=== PATIENT | male | born 1980 | race African-American/Black ===

== ENCOUNTER 2017-08-01 12:08 | Emergency (ER) | payer SELFPAY ==
[2017-08-01] MEDS ORDERED: NA CHLORIDE 0.9% 1,000 ML ONE (12:32)
[2017-08-01 12:56] LABS: Bicarbonate 23 mEq/L (21-31); Glucose Level 101 mg/dL (65-120); Potassium 3.6 mEq/L (3.6-5.0); Sodium Level 139 mEq/L (135-145)
[2017-08-01 12:59] LABS: BUN Blood Urea Nitrogen 11 mg/dL (6-20); Creatine Phosphokinase 286 IU/L (22-269)
--- NOTE | 2017-08-01 13:06 | EDPHYS ---
Physician Documentation [facility] Name: Ulises Patel Age: 37 yrs Sex: Male : 1980 Arrival Date: 08/01/2017 Time: 12:10 Bed 16 Private MD: ED Physician Pablo Moe HPI: 08/01 12:44 This 37 yrs old Black Male presents to ER via EMS with complaints of Nausea/Vomiting. snw 12:44 The patient presents to the emergency department with nausea, that is moderate, snw vomiting. Onset: The symptoms/episode began/occurred suddenly. Possible causes: pt feels he became overheated. Associated signs and symptoms: Pertinent positives: vomiting, chest pain. Severity of symptoms: At their worst the symptoms were moderate. The patient has not experienced similar symptoms in the past. It is unknown whether or not the patient has recently seen a physician. does not take medications for HTN. Historical: - Allergies: 12:15 Iodine; ae1 - Home Meds: 12:15 albuterol sulfate Inhl [Active]; ae1 - PMHx: 12:15 Hypertension; spine fracture; Asthma; CVA; ae1 - Immunization history:: Last tetanus immunization: unknown, Flu vaccine is not up to date. - Social history:: Smoking status: Patient/guardian denies using tobacco. - Ebola Screening: : Patient denies exposure to infectious person Patient denies travel to an Ebola-affected area in the 21 days before illness onset. ROS: 12:43 Eyes: Negative for injury, pain, redness, and discharge, ENT: Negative for injury, snw pain, and discharge, Neck: Negative for injury, pain, and swelling, Cardiovascular: Negative for chest pain, palpitations, and edema, Respiratory: Negative for shortness of breath, cough, wheezing, and pleuritic chest pain. 12:43 Back: Negative for injury and pain, : Negative for injury, bleeding, discharge, and swelling, MS/Extremity: Negative for injury and deformity, Skin: Negative for injury, rash, and discoloration, Neuro: Negative for headache, weakness, numbness, tingling, and seizure. 12:43 Constitutional: Positive for chills, fatigue, malaise, poor PO intake. 12:43 Abdomen/GI: Positive for nausea and vomiting. Exam: 12:43 Constitutional: This is a well developed, well nourished patient who is awake, alert, snw and in no acute distress. Head/Face: Normocephalic, atraumatic. Eyes: Pupils equal round and reactive to light, extra-ocular motions intact. Lids and lashes normal. Conjunctiva and sclera are non-icteric and not injected. Cornea within normal limits. Periorbital areas with no swelling, redness, or edema. ENT: Nares patent. No nasal discharge, no septal abnormalities noted. Tympanic membranes are normal and external auditory canals are clear. Oropharynx with no redness, swelling, or masses, exudates, or evidence of obstruction, uvula midline. Mucous membranes moist. Neck: Trachea midline, no thyromegaly or masses palpated, and no cervical lymphadenopathy. Supple, full range of motion without nuchal rigidity, or vertebral point tenderness. No Meningismus. Chest/axilla: Normal chest wall appearance and motion. Nontender with no deformity. No lesions are appreciated. Cardiovascular: Regular rate and rhythm with a normal S1 and S2. No gallops, murmurs, or rubs. Normal PMI, no JVD. No pulse deficits. Respiratory: Lungs have equal breath sounds bilaterally, clear to auscultation and percussion. No rales, rhonchi or wheezes noted. No increased work of breathing, no retractions or nasal flaring. Abdomen/GI: Soft, non-tender, with normal bowel sounds. No distension or tympany. No guarding or rebound. No evidence of tenderness throughout. Back: No spinal tenderness. No costovertebral tenderness. Full range of motion. Skin: Warm, dry with normal turgor. Normal color with no rashes, no lesions, and no evidence of cellulitis. MS/ Extremity: Pulses equal, no cyanosis. Neurovascular intact. Full, normal range of motion. Neuro: Awake and alert, GCS 15, oriented to person, place, time, and situation. Cranial nerves II-XII grossly intact. Motor strength 5/5 in all extremities. Sensory grossly intact. Cerebellar exam normal. Normal gait. Psych: Awake, alert, with orientation to person, place and time. Behavior, mood, and affect are within normal limits. Vital Signs: 12:16 BP 113 / 65; Pulse 65; Resp 19; Temp 98.3(O); Pulse Ox 96% ; Weight 88.45 kg (R); ae1 12:40 BP 117 / 70 Supine; Pulse 70; Resp 18; Pulse Ox 98% on R/A; ae1 12:42 BP 125 / 92 Sitting; Pulse 60; Resp 18; Pulse Ox 99% on R/A; ae1 12:44 BP 124 / 91 Standing; Pulse 68; Resp 19; Pulse Ox 99% on R/A; ae1 13:37 BP 116 / 75; Pulse 75; Resp 16; Temp 98.3; Pulse Ox 100% on R/A; dm5 MDM: 12:11 Patient medically screened. snw 13:06 Data reviewed: vital signs, nurses notes. Data interpreted: Pulse oximetry: on room air snw is 99 %. Interpretation: normal. Counseling: I had a detailed discussion with the patient and/or guardian regarding: the historical points, exam findings, and any diagnostic results supporting the discharge/admit diagnosis, the presence of at least one elevated blood pressure reading (>120/80) during this emergency department visit, lab results, radiology results, the need for outpatient follow up, to return to the emergency department if symptoms worsen or persist or if there are any questions or concerns that arise at home. Special discussion: I have referred the patient to see his PCP for further evaluation of high blood pressure. Based on the history and exam findings, there is no indication for further emergent testing or inpatient evaluation. I discussed with the patient/guardian the need to see the primary care provider for further evaluation of the symptoms. 08/01 12:25 Order name: Chem 7; Complete Time: 13:04 snw 08/01 12:25 Order name: Troponin (emerg Dept Use Only); Complete Time: 13:06 snw 08/01 12:25 Order name: CPK; Complete Time: 13:04 snw 08/01 13:21 Order name: EKG Electrocardiogram; Complete Time: 13:36 EDMS 08/01 12:19 Order name: Orthostatics; Complete Time: 12:49 snw Administered Medications: Discontinued: NS 0.9% 1000 ml IV at 1 bolus Per protocol; 1000 mL bolus 12:39 Drug: NS 0.9% 1000 ml Route: IV; Rate: 1 bolus; Site: right antecubital; ae1 13:39 Follow up: IV Intake: 800ml dm5 Disposition: 15:11 Co-signature as Attending Physician, Pablo Moe MD I agree with the assessment and pat plan of care. Disposition: 08/01/17 13:05 Discharged to Home. Impression: Heat fatigue, transient, Vomiting, unspecified. - Condition is Stable. - Discharge Instructions: Fatigue, Nausea and Vomiting, [id number], Heat-Related Illness, Rehydration, Adult. - Prescriptions for Zofran 4 mg Oral Tablet - take 1 tablet by ORAL route every 12 hours As needed; 20 tablet. - Medication Reconciliation Form, Thank You Letter, Antibiotic Education, Prescription Opioid Use form. - Follow up: Private Physician; When: 2 - 3 days; Reason: Recheck today's complaints, Continuance of care, Re-evaluation by your physician. Follow up: Emergency Department; When: As needed; Reason: Worsening of condition. Signatures: Dispatcher [employer] Pham [place], RN RN dm5 Pablo Moe MD MD cha Therrien, Shelly, ELDER COUNSELOR-C ELDER COUNSELOR-Csnw Ilir Wyatt RN RN ae1 Corrections: (The following items were deleted from the chart) 13:36 12:19 Urine Dipstick-Ancillary ordered. snw dm5 13:41 13:05 08/01/2017 13:05 Discharged to Home. Impression: Heat fatigue, transient; dm5 Vomiting, unspecified. Condition is Stable. Forms are Medication Reconciliation Form, Thank You Letter, Antibiotic Education, Prescription Opioid Use. Follow up: Private Physician; When: 2 - 3 days; Reason: Recheck today's complaints, Continuance of care, Re-evaluation by your physician. Follow up: Emergency Department; When: As needed; Reason: Worsening of condition. snw
--- NOTE | 2017-08-01 13:06 | ER ---
Nurse's Notes [facility] Name: Ulises Patel Age: 37 yrs Sex: Male : 1980 Arrival Date: 08/01/2017 Time: 12:10 Bed 16 Private MD: Diagnosis: Heat fatigue, transient;Vomiting, unspecified Presentation: 08/01 12:10 Presenting complaint: EMS states: States patient reports nausea and vomiting for the ae1 past couple of days. Patient reports he was working outside over the weekend in the sun and is concerned he may be dehydrated. Transition of care: patient was not received from another setting of care. Onset of symptoms was July 31, 2017. Risk Assessment: Do you want to hurt yourself or someone else? Patient reports no desire to harm self or others. Care prior to arrival: IV initiated. 20 GA, in the right antecubital area, Glucose check: 108. 12:10 Method Of Arrival: EMS: [facility] ae1 12:10 Acuity: SERGIO 3 ae1 Triage Assessment: 12:28 General: Appears in no apparent distress. comfortable, well groomed, Behavior is calm, ae1 cooperative. GI: Abdomen is flat, non-distended, Reports nausea, vomiting. Historical: - Allergies: 12:15 Iodine; ae1 - Home Meds: 12:15 albuterol sulfate Inhl [Active]; ae1 - PMHx: 12:15 Hypertension; spine fracture; Asthma; CVA; ae1 - Immunization history:: Last tetanus immunization: unknown, Flu vaccine is not up to date. - Social history:: Smoking status: Patient/guardian denies using tobacco. - Ebola Screening: : Patient denies exposure to infectious person Patient denies travel to an Ebola-affected area in the 21 days before illness onset. Screenin:28 Abuse screen: Denies threats or abuse. Nutritional screening: No deficits noted. ae1 Tuberculosis screening: No symptoms or risk factors identified. Fall Risk None identified. Assessment: 12:29 Reassessment: 4 mg IVP Zofran administered by EMS. ae1 13:37 Pain: Denies pain. GI: Reports reduced nausea. Derm: Skin is pink, warm \T\ dry. dm5 13:40 GI: Abdomen is flat, Bowel sounds present X 4 quads. dm5 Vital Signs: 12:16 BP 113 / 65; Pulse 65; Resp 19; Temp 98.3(O); Pulse Ox 96% ; Weight 88.45 kg (R); ae1 12:40 BP 117 / 70 Supine; Pulse 70; Resp 18; Pulse Ox 98% on R/A; ae1 12:42 BP 125 / 92 Sitting; Pulse 60; Resp 18; Pulse Ox 99% on R/A; ae1 12:44 BP 124 / 91 Standing; Pulse 68; Resp 19; Pulse Ox 99% on R/A; ae1 13:37 BP 116 / 75; Pulse 75; Resp 16; Temp 98.3; Pulse Ox 100% on R/A; dm5 ED Course: 12:10 Patient arrived in ED. ae1 12:11 Molly Gordon F[facility]-C [facility]. snw 12:11 Pablo Moe MD is Attending Physician. snw 12:14 Triage completed. ae1 12:18 Arm band placed on left wrist. ae1 12:18 Bed in low position. Call light in reach. Side rails up X2. inspectors and regulatory officers accompanying ae1 patient . 12:18 Maintain EMS IV. Dressing intact. Site clean \T\ dry. Gauge \T\ site: 20 gauge to the right ae 1 AC. 12:27 EKG done, by technical planner. reviewed by Molly HASTINGS. at1 13:35 Pham Bailon, RN is Primary Nurse. dm5 13:40 No provider procedures requiring assistance completed. IV discontinued, intact, dm5 bleeding controlled, No redness/swelling at site. Pressure dressing applied. Administered Medications: Discontinued: NS 0.9% 1000 ml IV at 1 bolus Per protocol; 1000 mL bolus 12:39 Drug: NS 0.9% 1000 ml Route: IV; Rate: 1 bolus; Site: right antecubital; ae1 13:39 Follow up: IV Intake: 800ml dm5 Intake: 13:39 IV: 800ml; Total: 800ml. dm5 Outcome: 13:05 Discharge ordered by . snw 13:41 Patient left the ED. dm5 Signatures: Pham Bailon, RN RN dm5 Molly Gordon FNP-C STUDENT CAREER DEVELOPMENT SPECIALIST-Csnw Sandra arteaga, manager paid EKG Tat1 Ilir Wyatt RN RN ae1
[2017-08-01 13:45] VITALS: TEMP 98.3
[2017-08-01 13:49] VITALS: BP 116/75; O2SAT 100
--- NOTE | 2017-08-01 14:24 | EKG ---
Test Date: 2017-08-01 Test Time: 12:15:12 Video And Sound Recorder: ANSON MEASUREMENT RESULTS: Intervals: Rate: 63 ID: [id number] QRSD: 98 QT: 388 QTc: 397 [place]: P: 55 ID: [id number] QRS: 31 T: 30 INTERPRETIVE STATEMENTS: Normal sinus rhythm with sinus arrhythmia Normal ECG No previous ECG available for comparison Electronically Signed On 08-01-17 14:24:10 CDT by Carrillo Orona
== END 2017-08-01 13:41 | disposition home or self-care (01) ==
LOC: ER 12:08
DX: T67.6XXA Heat fatigue, transient, initial encounter (principal); I10 Essential (primary) hypertension; J45.909 Unspecified asthma, uncomplicated; X58.XXXA Exposure to other specified factors, initial encounter; Y93.9 Activity, unspecified; Y92.9 Unspecified place or not applicable; Y99.9 Unspecified external cause status
CPT/HCPCS: 36415; 80048; 82550; 84484; 93005; 99284; J7030

== ENCOUNTER 2018-03-05 21:25 | Emergency (ER) | payer SELFPAY ==
[2018-03-05 21:52] LABS: Absolute Lymphocytes (CBC) 1.6 K/uL (0.7-4.9); Absolute Monocytes 1.1 K/uL (0.1-1.3); Absolute Neutrophil 24.6 K/uL (1.8-8.0); Basophils % 0.2 % (0-1.3); Eosinophils % 1.3 % (0-4.4); Hematocrit 43.9 % (39.6-49.0); MPV 7.3 fL (7.6-11.3); Monocytes % 3.9 % (3.3-12.3); RBC Red Blood Cell Count 4.95 M/uL (4.33-5.43)
[2018-03-05 21:56] LABS: Protime INR 1.08
--- NOTE | 2018-03-05 21:59 | RAD REPORT ---
EXAM DESCRIPTION: CT - Ct Stroke Brain Wo Cont - 03/05/2018 9:48 pm CLINICAL HISTORY: LEFT SIDED WEAKNESS CVA symptomology COMPARISON: No comparisons TECHNIQUE: All CT scans are performed using dose optimization technique as appropriate and may inclu de automated exposure control or mA/KV adjustment according to patient size. FINDINGS: No intracranial hemorrhage, hydrocephalus or extra-axial fluid collection.No areas of brai n edema or evidence of midline shift. The paranasal sinuses and mastoids are clear. The calvarium is intact. IMPRESSION: No acute intracranial abnormality. The findings were discussed with Dr. Pickard on 03/05/2018 at 9:40 p.m. by telephone.
--- NOTE | 2018-03-05 22:11 | ER ---
Nurse's Notes [facility] Name: Ulises Patel Age: 38 yrs Sex: Male : 1980 Arrival Date: 03/05/2018 Time: 21:29 Bed 14 Private MD: Diagnosis: Ischemic stroke Presentation: 03/05 21:37 Presenting complaint: EMS states: they were toned out for report of pt being found on bb the ground at home at 2050 pt has hx of stroke in 2011. Transition of care: patient was not received from another setting of care. Onset of symptoms was March 05, 2018 at 20:50. Risk Assessment: Do you want to hurt yourself or someone else? Patient reports no desire to harm self or others. Initial Sepsis Screen: Does the patient meet any 2 criteria? No. Patient's initial sepsis screen is negative. Does the patient have a suspected source of infection? No. Patient's initial sepsis screen is negative. Care prior to arrival: None. 21:37 Method Of Arrival: EMS: [facility] bb 21:37 Acuity: SERGIO 2 bb Triage Assessment: 21:29 General: Appears in no apparent distress. uncomfortable, Behavior is cooperative, cc3 appropriate for age. Pain: Complains of pain in chest. EENT: No signs and/or symptoms were reported regarding the EENT system. Neuro: Level of Consciousness is awake, alert, obeys commands, Oriented to person, place, time, situation, Appropriate for age Stave [place] Hand are weak on left Speech is normal, Facial symmetry appears normal, Pupils are PERRLA, Numbness in left arm and leg Reports tongue numbness. Cardiovascular: Reports chest pain, since 2-3 days. Respiratory: Airway is patent Trachea midline Respiratory effort is even, unlabored, Respiratory pattern is regular, symmetrical. GI: Abdomen is round non-distended. : No signs and/or symptoms were reported regarding the genitourinary system. Derm: No signs and/or symptoms reported regarding the dermatologic system. Musculoskeletal: Range of motion: limited in left side. Historical: - Allergies: 21:39 Iodine; bb - Home Meds: 21:39 albuterol sulfate Inhl [Active]; bb - PMHx: 21:39 Asthma; CVA; Hypertension; spine fracture; bb - Immunization history:: Adult Immunizations unknown. - Ebola Screening: : No symptoms or risks identified at this time. - Social history:: Smoking status: Patient/guardian denies using tobacco, but has a distant history of tobacco abuse. Screenin:29 patient can't remember last meal taken The patient is alert, able to follow commands. cc3 The patient does not exhibit slurred or garbled speech The patient is not exhibiting difficulty speaking. The patient does not exhibit difficulty understanding words. The patient is able to swallow own secretions with no drooling or need for suction. Patient tolerated one teaspoon of water. No drooling, immediate coughing, gurgling, or clearing of the throat was noted. The patient tolerated 90mL of water. No drooling, immediate coughing, gurgling, or clearing of the throat was noted. The patient passed the bedside swallow screening. Oral medications may be given as ordered. Contact Physician for further diet orders. Provider notified of bedside swallow screening results: Elia Pickard MD. 21:49 Abuse screen: Denies threats or abuse. Nutritional screening: No deficits noted. bb Tuberculosis screening: No symptoms or risk factors identified. Fall Risk None identified. Assessment: 21:29 Reassessment: Dr Pickard at bedside for pt evaluation. bb 21:35 Reassessment: pt to CT scan via stretcher with RN. bb 22:30 Reassessment: Patient appears in no apparent distress at this time. Patient and/or cc3 family updated on plan of care and expected duration. Pain level reassessed. Patient is alert, oriented x 3, equal unlabored respirations, skin warm/dry/pink. 23:18 Reassessment: Patient appears in no apparent distress at this time. Patient and/or cc3 family updated on plan of care and expected duration. Pain level reassessed. Patient is alert, oriented x 3, equal unlabored respirations, skin warm/dry/pink. 23:35 Reassessment: Patient for transfer to [facility], report called to RN alfonzo Clark. Transfer form completed signed by the patient himself, life flight transport arranged. 03/06 00:05 Reassessment: Patient appears in no apparent distress at this time. Patient and/or cc3 family updated on plan of care and expected duration. Pain level reassessed. Patient is alert, oriented x 3, equal unlabored respirations, skin warm/dry/pink. [facility] life flight staff came to fetch the patient for transfer. 00:17 Reassessment: Patient left ER by life flight vitally stable. cc3 Vital Signs: 03/05 21:39 BP 125 / 90; Pulse 96; Resp 16 S; Temp 98.9(O); Pulse Ox 96% on R/A; Weight 86.18 kg bb (R); Height 5 ft. 11 in. (180.34 cm) (R); 22:15 BP 131 / 86; Pulse 91; Resp 17 S; Pulse Ox 96% on R/A; cc3 22:45 BP 125 / 75; Pulse 82; Resp 17 S; Pulse Ox 96% on R/A; cc3 23:49 BP 130 / 79; Pulse 86; Resp 19 S; Pulse Ox 96% on R/A; cc3 03/06 00:10 BP 130 / 86; Pulse 79; Resp 18 S; Pulse Ox 97% on R/A; cc3 03/05 21:39 Body Mass Index 26.50 (86.18 kg, 180.34 cm) bb NIH Stroke Scale Scores: 03/05 21:29 NIHSS Score: 9 cc3 ED Course: 21:29 Patient arrived in ED. em1 21:31 Inserted saline lock: 20 gauge in right antecubital area, using aseptic technique. bb ,using aseptic technique. by Jamie MARIN Blood collected. 21:33 Pablo Brady PA is PHCP. cp 21:34 Elia Pickard MD is Attending Physician. cp 21:38 Triage completed. bb 21:39 Arm band placed on Patient placed in an exam room, on a stretcher. bb 21:44 CT completed. Patient moved to CT via stretcher. Patient moved back from CT. bq 21:46 Adele Hodge is Primary Nurse. cc3 21:49 Ct Stroke Brain Wo Cont In Process Unspecified. EDMS 21:49 Patient has correct armband on for positive identification. Bed in low position. Call bb light in reach. Side rails up X2. monitor worker on. Pulse ox on. NIBP on. 21:50 X-ray completed. Portable x-ray completed in exam room. Patient tolerated procedure sg4 well. 21:51 XRAY Chest (1 view) In Process Unspecified. EDMS 21:54 Notified ED physician of a critical lab result(s). WBC of 27.7 Dr Pickard notified. bb 23:16 Notified ED physician of other [facility] declined transfer due to unavailability em1 of Neuro Telemetry beds. Transfer to [facility] initiated. 23:31 Notified ED physician of other Transfer accepted to [facility] at [facility]. em1 23:35 No provider procedures requiring assistance completed. Patient transferred, IV remains cc3 in place. Administered Medications: 22:10 Drug: Aspirin 325 mg Route: PO; cc3 22:45 Follow up: Response: No adverse reaction cc3 22:15 Drug: NS 0.9% 1000 ml Route: IV; Rate: 100 ml/hr; Site: right antecubital; cc3 23:00 Follow up: Response: No adverse reaction; IV Status: Infusion continued upon transfer cc3 23:20 Drug: K-Dur 20 mEq Route: PO; cc3 23:40 Follow up: Response: No adverse reaction cc3 23:45 Drug: Zofran 4 mg Route: IVP; Site: right antecubital; cc3 03/06 00:10 Follow up: Response: No adverse reaction; Nausea is decreased cc3 Point of Care Testing: Blood Glucose: 03/05 21:32 Blood Glucose: 110 mg/dL; bb Ranges: Outcome: 22:10 ER care complete, transfer ordered by . pkl 23:35 Transferred by helicopter Transfer form completed. Note: [facility] cc3 23:35 Condition: stable 23:35 Instructed on the need for transfer, Demonstrated understanding of instructions. 23:40 ER care complete, transfer ordered by pklionel 03/06 00:17 Patient left the ED. cc3 NIH Stroke Scale - NIH Stroke Score Date: 03/05/2018 Time: 21:29 Total Score = 9 1a. Level of Consciousness (LOC) - 0(Alert) 1b. Level of Consciousness (LOC) (Year \T\ Age) - 0(Both) 1c. LOC Commands (Open \T\ Closes Eyes/Paperboard Box Maker) - 0(Both) 2. Best Gaze (Lateral Gaze Paresis) - 0(Normal) 3. Visual Field Loss - 0(No visual loss) 4. Facial Palsy - 0(Normal) 5a. Left Arm: Motor (10-second hold) - 3(No effort against gravity) 5b. Right Arm: Motor (10-second hold) - 0(No drift) 6a. Left Leg: Motor (5-second hold - always test supine) - 3(No effort against gravity) 6b. Right Leg: Motor (5-second hold - always test supine) - 0(No drift) 7. Limb Ataxia (finger/nose \T\ heel/borja - test with eyes open) - 2(Present in two limbs) 8. Sensory Loss (pinprick arms/legs/face) - 1(Mild to moderate loss) 9. Best Language: Aphasia (description/naming/reading) - 0(No aphasia) 10. Dysarthria (speech clarity - read or repeat words) - 0(Normal) 11. Extinction and Inattention (visual/tactile/auditory/spatial/personal) - 0(No abnormality) Initials: cc3 Signatures: Dispatcher [employer] EDElia Purdy MD MD pkl Quilty, Betty bq Ballard, Brenda, RN RN Bam Lipscomb em1 Pablo Brady PA PA cp Cordel, Charlene cc3 Julee Dickson sg4 Corrections: (The following items were deleted from the chart) 03/05 21:49 21:39 BP 125 / 90; Pulse 96bpm; Resp 16bpm; Spontaneous; Pulse Ox 96% RA; santos graham 03/06 00:44 03/05 23:35 Reassessment: Patient for transfer to [facility] ER, cc3 report called to TANIA Clark. cc3
--- NOTE | 2018-03-05 22:12 | EDPHYS ---
Physician Documentation [facility] Name: Ulises Patel Age: 38 yrs Sex: Male : 1980 Arrival Date: 03/05/2018 Time: 21:29 Bed 14 Private MD: ED Physician Elia Pickard HPI: 03/05 21:52 This 38 yrs old Black Male presents to ER via EMS with unknown complaint. pkl 21:52 The patient's problem is reported as difficulty walking, off balance, weakness, in the pkl left upper extremity, in the left lower extremity. Onset: The symptoms/episode began/occurred just prior to arrival, 1 hour(s) ago. Associated signs and symptoms: Pertinent positives: headache and nausea since yesterday. Patient last time behaving normal was around 5 P.M.. Historical: - Allergies: 21:39 Iodine; bb - Home Meds: 21:39 albuterol sulfate Inhl [Active]; bb - PMHx: 21:39 Asthma; CVA; Hypertension; spine fracture; bb - Immunization history:: Adult Immunizations unknown. - Ebola Screening: : No symptoms or risks identified at this time. - Social history:: Smoking status: Patient/guardian denies using tobacco, but has a distant history of tobacco abuse. ROS: 21:52 Eyes: Negative for injury, pain, redness, and discharge, ENT: Negative for injury, pkl pain, and discharge, Neck: Negative for injury, pain, and swelling, Cardiovascular: Negative for chest pain, palpitations, and edema, Respiratory: Negative for shortness of breath, cough, wheezing, and pleuritic chest pain, Abdomen/GI: Negative for abdominal pain, nausea, vomiting, diarrhea, and constipation, Back: Negative for injury and pain, : Negative for injury, bleeding, discharge, and swelling, Skin: Negative for injury, rash, and discoloration. 21:52 Neuro: Positive for gait disturbance, weakness, of the left upper and lower extremities.. Exam: 21:59 Radiologist reports: No acute change pkl 21:59 Head/Face: Normocephalic, atraumatic. Eyes: Pupils equal round and reactive to light, extra-ocular motions intact. Lids and lashes normal. Conjunctiva and sclera are non-icteric and not injected. Cornea within normal limits. Periorbital areas with no swelling, redness, or edema. ENT: Nares patent. No nasal discharge, no septal abnormalities noted. Tympanic membranes are normal and external auditory canals are clear. Oropharynx with no redness, swelling, or masses, exudates, or evidence of obstruction, uvula midline. Mucous membranes moist. Neck: Trachea midline, no thyromegaly or masses palpated, and no cervical lymphadenopathy. Supple, full range of motion without nuchal rigidity, or vertebral point tenderness. No Meningismus. Chest/axilla: Normal chest wall appearance and motion. Nontender with no deformity. No lesions are appreciated. Cardiovascular: Regular rate and rhythm with a normal S1 and S2. No gallops, murmurs, or rubs. Normal PMI, no JVD. No pulse deficits. Respiratory: Lungs have equal breath sounds bilaterally, clear to auscultation and percussion. No rales, rhonchi or wheezes noted. No increased work of breathing, no retractions or nasal flaring. Abdomen/GI: Soft, non-tender, with normal bowel sounds. No distension or tympany. No guarding or rebound. No evidence of tenderness throughout. Back: No spinal tenderness. No costovertebral tenderness. Full range of motion. Skin: Warm, dry with normal turgor. Normal color with no rashes, no lesions, and no evidence of cellulitis. MS/ Extremity: Pulses equal, no cyanosis. Neurovascular intact. Full, normal range of motion. 21:59 Neuro: Orientation: appropriate for stated age, Mentation: appropriate for stated age, Cranial nerves: grossly normal, Cerebellar function: dysmetria is noted on the left, the patient is unable to track left heel to right borja, Motor: Strength is 2/5 in the left upper and lower extremities. Vital Signs: 21:39 BP 125 / 90; Pulse 96; Resp 16 S; Temp 98.9(O); Pulse Ox 96% on R/A; Weight 86.18 kg bb (R); Height 5 ft. 11 in. (180.34 cm) (R); 22:15 BP 131 / 86; Pulse 91; Resp 17 S; Pulse Ox 96% on R/A; cc3 22:45 BP 125 / 75; Pulse 82; Resp 17 S; Pulse Ox 96% on R/A; cc3 23:49 BP 130 / 79; Pulse 86; Resp 19 S; Pulse Ox 96% on R/A; cc3 03/06 00:10 BP 130 / 86; Pulse 79; Resp 18 S; Pulse Ox 97% on R/A; cc3 03/05 21:39 Body Mass Index 26.50 (86.18 kg, 180.34 cm) bb NIH Stroke Scale Scores: 03/05 21:29 NIHSS Score: 9 cc3 MDM: 21:34 Patient medically screened. cp 21:59 Data reviewed: vital signs, nurses notes, lab test result(s), EKG, radiologic studies, pk CT scan, plain films. ED course: Talked to Dr. Ribeiro ( [facility] ). Transfer to [facility]. No thrombolytics ( outside window ). 23:25 ED course: [facility] called. No bed available for transfer. Talked to Dr. Aguiar ( [facility] Stroke [facility]. Will transfer patient to [facility] [place].. 03/05 21:37 Order name: Basic Metabolic Panel; Complete Time: 23:10 pkl 03/05 21:37 Order name: CBC with Diff; Complete Time: 23:10 pkl 03/05 21:37 Order name: LFT's; Complete Time: 23:10 pkl 03/05 21:37 Order name: Magnesium; Complete Time: 23:10 pkl 03/05 21:37 Order name: NT PRO-BNP; Complete Time: 23:10 pkl 03/05 21:37 Order name: PT-INR; Complete Time: 22:08 pkl 03/05 21:37 Order name: Troponin (emerg Dept Use Only); Complete Time: 23:10 pkl 03/05 21:37 Order name: XRAY Chest (1 view) pkl 03/05 21:38 Order name: UDS; Complete Time: 23:10 pkl 03/05 21:45 Order name: Ct Stroke Brain Wo Cont; Complete Time: 22:08 EDMS 03/05 21:54 Order name: Manual Differential; Complete Time: 23:10 EDMS 03/05 22:20 Order name: Urine Dipstick--Ancillary (enter results); Complete Time: 23:10 em1 03/05 21:37 Order name: EKG; Complete Time: 21:38 pkl 03/05 21:37 Order name: Cardiac monitoring; Complete Time: 21:42 pkl 03/05 21:37 Order name: EKG - Nurse/Tech; Complete Time: 22:21 pkl 03/05 21:37 Order name: IV Saline Lock; Complete Time: 21:42 pkl 03/05 21:37 Order name: Labs collected and sent; Complete Time: 21:42 pkl 03/05 21:37 Order name: O2 Per Protocol; Complete Time: 21:42 pkl 03/05 21:37 Order name: O2 Sat Monitoring; Complete Time: 21:42 pkl Administered Medications: 22:10 Drug: Aspirin 325 mg Route: PO; cc3 22:45 Follow up: Response: No adverse reaction cc3 22:15 Drug: NS 0.9% 1000 ml Route: IV; Rate: 100 ml/hr; Site: right antecubital; cc3 23:00 Follow up: Response: No adverse reaction; IV Status: Infusion continued upon transfer cc3 23:20 Drug: K-Dur 20 mEq Route: PO; cc3 23:40 Follow up: Response: No adverse reaction cc3 23:45 Drug: Zofran 4 mg Route: IVP; Site: right antecubital; cc3 03/06 00:10 Follow up: Response: No adverse reaction; Nausea is decreased cc3 Point of Care Testing: Blood Glucose: 03/05 21:32 Blood Glucose: 110 mg/dL; bb Ranges: Critical Glucose Levels:Adult <50 mg/dl or >400 mg/dl <40 mg/dl or >180 mg/dl Disposition: 03/05/18 23:40 Transfer ordered to Other Acute Care Facility. Diagnosis is Ischemic stroke. - Reason for transfer: Higher level of care. - Accepting physician is Dr. Hobbs. - Condition is Stable. - Problem is new. - Symptoms are unchanged. NIH Stroke Scale - NIH Stroke Score Date: 03/05/2018 Time: 21:29 Total Score = 9 1a. Level of Consciousness (LOC) - 0(Alert) 1b. Level of Consciousness (LOC) (Year \T\ Age) - 0(Both) 1c. LOC Commands (Open \T\ Closes Eyes/Foreclosure Field Inspector) - 0(Both) 2. Best Gaze (Lateral Gaze Paresis) - 0(Normal) 3. Visual Field Loss - 0(No visual loss) 4. Facial Palsy - 0(Normal) 5a. Left Arm: Motor (10-second hold) - 3(No effort against gravity) 5b. Right Arm: Motor (10-second hold) - 0(No drift) 6a. Left Leg: Motor (5-second hold - always test supine) - 3(No effort against gravity) 6b. Right Leg: Motor (5-second hold - always test supine) - 0(No drift) 7. Limb Ataxia (finger/nose \T\ heel/borja - test with eyes open) - 2(Present in two limbs) 8. Sensory Loss (pinprick arms/legs/face) - 1(Mild to moderate loss) 9. Best Language: Aphasia (description/naming/reading) - 0(No aphasia) 10. Dysarthria (speech clarity - read or repeat words) - 0(Normal) 11. Extinction and Inattention (visual/tactile/auditory/spatial/personal) - 0(No abnormality) Initials: cc3 Signatures: Dispatcher [employer] EDMS Elia Pickard MD MD pkl Sandy Altamirano RN RN bb Pablo Brady PA PA cp Cordel, Charlene cc3 Corrections: (The following items were deleted from the chart) 23:29 22:10 03/05/2018 22:10 Transfer ordered to [facility]. pk Diagnosis is Ishemic stroke. Reason for transfer: Higher level of care. Accepting physician is Dr. Ribeiro. Condition is Fair. Problem is new. Symptoms are unchanged. pkl 03/06 00:17 03/05 23:40 03/05/2018 23:40 Transfer ordered to Other Acute Care Facility. cc3 Diagnosis is Ischemic stroke. Reason for transfer: Higher level of care. Accepting physician is Dr. Hobbs. Condition is Stable. Problem is new. Symptoms are unchanged. pkl
[2018-03-05 22:14] LABS: ALT/SGPT 29 U/L (12-78); AST/SGOT 13 U/L (15-37); Albumin 3.8 g/dL (3.4-5.0); Alkaline Phosphatase 83 U/L (45-117); BUN Blood Urea Nitrogen 19 mg/dL (7-18); Bicarbonate 24 mmol/L (21-32); Bilirubin Direct 0.1 mg/dL (0-0.2); Bilirubin Total 0.4 mg/dL (0.2-1.0); Glucose Level 106 mg/dL (74-106); Magnesium 2.2 mg/dL (1.8-2.4); NT PRO-BNP 9 pg/mL (<125); Potassium 3.3 mmol/L (3.5-5.1); Protein, Total 7.7 g/dL (6.4-8.2); Sodium Level 140 mmol/L (136-145); Troponin (Emerg Dept Use Only) < 0.02 ng/mL (0.0-0.045)
[2018-03-05 22:16] LABS: Blood Morphology Comment NOT SEEN (NOT SEEN); Platelet Estimate ADEQ
[2018-03-05] MEDS ORDERED: NA CHLORIDE 0.9% 1,000 ML ONE (22:24)
[2018-03-05] MEDS ORDERED: ASPIRIN 325 MG TAB ONE (22:24)
[2018-03-05 22:25] LABS: Barbiturates NEGATIVE (NEGATIVE); Benzodiazepines NEGATIVE (NEGATIVE); Cocaine NEGATIVE (NEGATIVE); METHAMPHETAM NEGATIVE (NEGATIVE); Methadone NEGATIVE (NEGATIVE); Opiates NEGATIVE (NEGATIVE); Phencyclidine NEGATIVE (NEGATIVE); THC Cannibis NEGATIVE (NEGATIVE)
[2018-03-05 22:36] LABS: Urine Blood NEGATIVE (NEG); Urine Glucose NEGATIVE (NEG); Urine Protein NEGATIVE (NEG); Urine Specific Gravity <1.005 (1.005-1.030); Urine pH 5.5 (5.0-7.0)
[2018-03-05] MEDS ORDERED: POTASSIUM CL SA 10 MEQ TAB PO ONE (23:34)
[2018-03-05] MEDS ORDERED: ONDANSETRON 4 MG/2 ML VIAL ONE (23:55)
[2018-03-06 01:06] VITALS: TEMP 98.9; O2SAT 96
[2018-03-06 01:09] VITALS: BP 130/79
--- NOTE | 2018-03-06 06:25 | EKG ---
Test Date: 2018-03-05 Test Time: 22:02:17 Senior Cost Estimator: KULWANT MEASUREMENT RESULTS: Intervals: Rate: 87 IN: 174 QRSD: 98 QT: 366 QTc: 440 [place]: P: 60 IN: 174 QRS: 33 T: 33 INTERPRETIVE STATEMENTS: Normal sinus rhythm Minimal voltage criteria for LVH, may be normal variant Borderline ECG Compared to ECG 08/01/2017 12:15:12 Left ventricular hypertrophy now present Sinus arrhythmia no longer present Electronically Signed On 03-06-18 06:17:01 MANAGER [employer]CIAL by Carrillo Orona
--- NOTE | 2018-03-06 08:32 | RAD REPORT ---
EXAM DESCRIPTION: [facility] Single View03/05/2018 9:51 pm CLINICAL HISTORY: Chest pain COMPARISON: April 2017 FINDINGS: The lungs appear clear of acute infiltrate. The heart is normal size mild prominence of t he right hilum unchanged IMPRESSION: Mild prominence of the right hilum unchanged. Of this may be vascular. As lymphadenopath y can have this appearance followup PA and lateral chest series in 3 months is recommended for re-mod[place] luation
== END 2018-03-06 00:17 ==
LOC: ER 21:25
DX: I63.89 Other cerebral infarction (principal); I10 Essential (primary) hypertension; R29.709 NIHSS score 9; J45.909 Unspecified asthma, uncomplicated; Z79.899 Other long term (current) drug therapy
CPT/HCPCS: 36415; 70450; 71045; 80048; 80076; 80307; 81003; 82962; 83735; 83880; 84484; 85025; 85610; 93005; 96361; 96374; 99285; J2405; J7030